=== PATIENT | male | born 1995 | race African-American/Black ===

== ENCOUNTER 2023-03-25 11:27 | Emergency (ER) | payer SELFPAY ==
[2023-03-25 11:30] VITALS: BP 115/61; PULSE 68
[2023-03-25] MEDS: Ketorolac 30 MG/ML SDV IM ONE (11:43)
[2023-03-25 11:52] LABS: BASOPHILS ABSOLUTE AUTO 0.02 K/uL (0.00-0.20); BASOPHILS PERCENT AUTO 0.6 % (0.0-2.0); EOSINOPHILS ABSOLUTE AUTO 0.12 K/uL (0.00-0.50); EOSINOPHILS PERCENT AUTO 3.4 % (0.0-5.0); HEMATOCRIT 43.5 % (39.0-49.0); HEMOGLOBIN 14.4 g/dL (13.1-16.8); LYMPHOCYTES ABSOLUTE AUTO 1.55 K/uL (0.50-3.50); LYMPHOCYTES PERCENT AUTO 43.4 % (10.0-50.0); MEAN CORPUSCULAR HEMOGLOBIN 29.1 pg (28.2-33.3); MEAN CORPUSCULAR HGB CONC 33.1 g/dL (31.7-36.0); MEAN CORPUSCULAR VOLUME 88.1 fL (84.0-98.0); MONOCYTES ABSOLUTE AUTO 0.43 K/uL (0.00-1.00); NEUTROPHILS ABSOLUTE AUTO 1.45 K/uL (1.40-7.00); NEUTROPHILS PERCENT AUTO 40.6 % (45.0-80.0); PLATELET COUNT,PLT 168 K/uL (150-350); RED BLOOD CELL COUNT 4.94 M/uL (4.33-5.41); RED CELL DISTRIBUTION WIDTH 13.3 % (11.2-14.1); WHITE BLOOD CELL COUNT,WBC 3.6 K/uL (4.0-10.2)
[2023-03-25 11:58] LABS: APPEARANCE,URINE CLEAR; BILIRUBIN,URINE NEGATIVE (NEGATIVE); COLOR,URINE LIGHT YELLOW; GLUCOSE,URINE NEGATIVE (NEGATIVE); KETONES,URINE NEGATIVE (NEGATIVE); LEUKOCYTE ESTERASE,URINE NEGATIVE (NEGATIVE); NITRITE,URINE NEGATIVE (NEGATIVE); OCCULT BLOOD,URINE NEGATIVE (NEGATIVE); PH,URINE 6.5 (5.0-9.0); PROTEIN,URINE NEGATIVE (NEGATIVE); UROBILINOGEN,URINE 0.2 E.U./dL (0.2-1.0)
[2023-03-25 12:00] LABS: ANION GAP 8.6 meq/L (7-15); CALCIUM 8.9 mg/dL (8.5-10.1); CARBON DIOXIDE,CO2 29.4 mmol/L (21.0-32.0); CREATININE 0.96 mg/dL (0.51-1.17); EST CRCL DRUG DOSING (CG) 131.12 mL/min; POTASSIUM,K 4.2 mmol/L (3.5-5.1)
== END 2023-03-25 12:36 | disposition home or self-care (01) ==
LOC: LL.ED 11:27
DX: J02.9 Acute pharyngitis, unspecified (principal); M54.9 Dorsalgia, unspecified; F17.210 Nicotine dependence, cigarettes, uncomplicated
CPT/HCPCS: 36415; 80048; 81003; 85025; 87081; 87430; 96372; 99284; J1885